=== PATIENT | female | born 1995 | race Caucasian/White ===

== ENCOUNTER 2022-12-27 19:00 | Inpatient (IN) | payer BC ==
[~2022-12-27 19:00] MED LIST: Bupivacaine 0.25% HCL 30 ML VIAL ONE; Bupivacaine PF 0.5% 30 ML VIAL ONE
[2022-12-27] MEDS ORDERED: Acetaminophen 500 MG TAB PO PRN (19:21)
[2022-12-27] MEDS ORDERED: Ibuprofen 800 MG TAB PO PRN (19:21)
[2022-12-27] MEDS ORDERED: Zolpidem Tartrate 5 MG TAB PO PRN (19:21)
[2022-12-27] MEDS ORDERED: hydrALAZINE 20 MG/ML VIAL SLOW IVP PRN (19:21)
[2022-12-27] MEDS ORDERED: Misoprostol 200 MCG TAB PR PRN (19:21)
[2022-12-27] MEDS ORDERED: Carboprost 250 MCG/ML AMP IM PRN (19:21)
[2022-12-27] MEDS ORDERED: Tranexamic Acid 1,000 MG/10 ML VIAL IVP PRN (19:21)
[2022-12-27] MEDS ORDERED: Methylergonovine 0.2 MG/ML VIAL IM PRN (19:21)
[2022-12-27] MEDS ORDERED: Lidocaine 1% (PF) 30 ML VIAL SC PRN (19:21)
[2022-12-27] MEDS ORDERED: HYDROcodone/Acetaminophen 5/325 mg Tablet PO PRN ×2 (19:21)
[2022-12-27] MEDS ORDERED: Promethazine HCl 25 MG/ML VIAL IM PRN (19:21)
[2022-12-27] MEDS ORDERED: Ondansetron PF 4 MG/2 ML Vial IVP PRN (19:21)
[2022-12-27] MEDS ORDERED: Diphenoxylate HCl/Atropine Tablet PO PRN ×2 (19:21)
[2022-12-27] MEDS ORDERED: fentaNYL 50 mcg/mL 1 mL Vial SLOW IVP PRN (19:21)
[2022-12-27] MEDS ORDERED: Lactated Ringer's 1,000 ML IV SCH (19:30)
[2022-12-27] MEDS ORDERED: NS w/ Oxytocin 30 units 500 ML IV SCH ×2 (19:30)
[2022-12-27 20:00] VITALS: BMI 29.6
[2022-12-27 20:25] LABS: Hematocrit 30.9 % (34.9-44.5); Mean Corpuscular HGB CONC 35.6 g/dL (32.0-36.0); Mean Corpuscular Volume 92.8 fl (81.6-98.3); Mean Platelet Volume 11.4 fl (7.4-10.4); Platelet Count 175 10x3/uL (150-450); RBC Distribution Width 13.2 % (11.5-14.5); Red Blood Cell (RBC) Count 3.33 10x6/uL (3.90-5.03); White Blood Cell (WBC) Count 10.9 10x3/uL (3.5-10.5)
[2022-12-27] MEDS: Misoprostol 100 MCG TAB VAG SCH (20:50)
[2022-12-27 20:54] LABS: HBSAg Index 0.17 S/CO (0-0.99); Hep B Surf Ag - L&D Non-Reactive S/CO (NonReactive)
[2022-12-27 20:55] LABS: Syphilis Antibody Nonreactive (Nonreactive); Syphilis Antibody Index 0.03 S/CO (<1.00 Non-Reactive)
[2022-12-28] MEDS: Misoprostol 100 MCG TAB VAG SCH (00:13)
[2022-12-28] MEDS ORDERED: fentaNYL/Ropivacaine Epidural 100 ML ONE (07:15)
[2022-12-28] MEDS ORDERED: Lactated Ringer's 500 ML IV PRN (07:51)
[2022-12-28] MEDS ORDERED: Moisturizing Cream (Eucerin) 113 GM JAR TOP PRN (07:51)
[2022-12-28] MEDS ORDERED: ePHEDrine Sulfate 50 MG/10 ML VIAL SLOW IVP PRN (07:51)
[2022-12-28] MEDS ORDERED: Promethazine HCl 25 MG/ML VIAL IM PRN ×2 (07:51→09:18)
[2022-12-28] MEDS ORDERED: Acetaminophen 325 MG TAB PO PRN (07:51)
[2022-12-28] MEDS ORDERED: Ondansetron PF 4 MG/2 ML Vial IVP PRN (07:51)
[2022-12-28] MEDS ORDERED: diphenhydrAMINE 50 MG/ML VIAL IVP PRN (07:51)
[2022-12-28] MEDS ORDERED: Naloxone HCl 0.4 mg/ml Vial IVP PRN ×2 (07:51)
[2022-12-28] MEDS ORDERED: fentaNYL 2 mcg/Ropivacaine 0.2% Epidural 100 ML CADD EPIDURAL SCH ×2 (08:00)
[2022-12-28] MEDS ORDERED: Communication Order-Pharmacy FS SCH (08:00)
[2022-12-28] MEDS ORDERED: Dexmedetomidine 200 MCG/2 ML VIAL ONE (08:18)
[2022-12-28] MEDS ORDERED: Boostrix 0.5 ML (Tdap) VIAL (>/=7 yrs of age) IM ONE (09:18)
[2022-12-28] MEDS ORDERED: Preparation H Ointment 28 GM TUBE PR PRN (09:18)
[2022-12-28] MEDS ORDERED: Bisacodyl 10 MG SUPP PR PRN (09:18)
[2022-12-28] MEDS ORDERED: Lanolin Ointment 7 GM TUBE TOP PRN (09:18)
[2022-12-28] MEDS ORDERED: Milk Of Magnesia 30 ML UDCUP PO PRN (09:18)
[2022-12-28] MEDS ORDERED: hydrALAZINE 20 MG/ML VIAL SLOW IVP PRN (09:18)
[2022-12-28] MEDS ORDERED: Benzocaine-Menthol 82.5 ML CAN TOP PRN (09:18)
[2022-12-28] MEDS: Ibuprofen 800 MG TAB PO SCH ×2 (14:48→22:04)
[2022-12-28] MEDS ORDERED: Ferrous Sulfate 325 MG TAB PO SCH (17:00)
[2022-12-28] MEDS: Docusate 100 MG CAP PO SCH (22:04)
[2022-12-29] MEDS: Ibuprofen 800 MG TAB PO SCH (05:29)
[2022-12-29 07:30] VITALS: BP 93/55; TEMP 98.1
[2022-12-29] MEDS ORDERED: traMADol HCl 50 MG TAB PO PRN (08:00)
[2022-12-29] MEDS: Docusate 100 MG CAP PO SCH (08:25)
[2022-12-29] MEDS ORDERED: Prenatal Vitamin 1 TAB PO SCH (09:00)
== END 2022-12-29 14:45 | disposition home or self-care (01) | DRG 807 ==
LOC: CSHLD 19:06 → CSHPED 12-28 11:25
PROVIDERS: ADMIT Obstetrics & Gynecology; ATTEND Obstetrics & Gynecology
PROC: 10E0XZZ Delivery of Products of Conception, External Approach (ICD-10-PCS; principal; 2022-12-28)
PROC: 0W8NXZZ Division of Female Perineum, External Approach (ICD-10-PCS; 2022-12-28)
DX: O69.81X0 Labor and delivery complicated by cord around neck, without compression, not applicable or unspecified (principal); Z37.0 Single live birth; O76 Abnormality in fetal heart rate and rhythm complicating labor and delivery; Z3A.39 39 weeks gestation of pregnancy
CPT/HCPCS: 51702; 85027; 86780; 86850; 86900; 86901; 87340; J7120; S0020